=== PATIENT | male | born 1935 | race Caucasian/White ===

== ENCOUNTER 2016-09-09 10:02 | Inpatient (IN) | payer MEDICARE ==
[2016-09-09] MEDS ORDERED: SODIUM CHLORIDE 0.9% 10 ML FLUSH FLUSH PRN (10:25)
[2016-09-09] MEDS ORDERED: ASPIRIN 325 MG TAB PO ONE (10:26)
[2016-09-09] MEDS ORDERED: NITROGLYCERINE 2 % OINTMENT PACK TOP ONE (10:26)
[2016-09-09 10:36] LABS: AUTOMATED BASOPHIL 0.2 % (0-2); AUTOMATED EOSINOPHIL 0.1 % (0-5); AUTOMATED LYMPH 8.8 % (17-44); AUTOMATED MONOCYTE 5.3 % (3-10); AUTOMATED NEUTROPHIL 85.6 % (45-76); MPV 7.1 fL (7.4-10.4)
[2016-09-09 10:45] LABS: BLOOD UREA NITROGEN 19 MG/DL (9-20); CALCIUM 9.2 MG/DL (8.4-10.2); CALCULATED OSMOLALITY 273 MOs/Kg (270-290); CHLORIDE 102 mEq/L (98-107); GLUCOSE 143 MG/DL (70-99); SODIUM LEVEL 140 mEq/L (137-146); TOTAL PROTEIN 6.9 G/DL (6.3-8.2)
[2016-09-09 10:50] LABS: PARTIAL THROMB. TIME 24.7 SEC (22-35)
--- NOTE | 2016-09-09 11:02 | DIRPT ---
CLINICAL DATA: 81-year-old male with chest pain EXAM: PORTABLE CHEST 1 VIEW COMPARISON: Prior chest x-ray 08/05/2013 FINDINGS: The lungs are clear and negative for focal airspace consolidation, pulmonary edema or suspicious pulmonary nodule. No pleural effusion or pneumothorax. Cardiac and mediastinal contours are within normal limits. Atherosclerotic calcifications in the transverse aorta. No acute fracture or lytic or blastic osseous lesions. The visualized upper abdominal bowel gas pattern is unremarkable. IMPRESSION: No active cardiopulmonary disease. Electronically Signed By: Justin Cuellar M.D. On: 09/09/2016 10:59
[2016-09-09] MEDS ORDERED: MORPHINE 4 MG/ML INJECTION IV ONE (11:10)
--- NOTE | 2016-09-09 11:10 | EDPRACDOC ---
<ZhengJulian - Last Filed: 09/09/16 11:37> - General Information Information Source: Patient Mode of Arrival: Car - History of Present Illness Onset: 033 HPI: PT PRESENTS TODAY WITH CP X 7 HOURS. PT STATES THAT THE PAIN CAME ON SUDDENLY IN HIS SLEEP AND FELT LIKE A PRESSURE TYPE PAIN. NON-RADIATING, LASTED 3 HOURS. PT STATES THE PAIN FINALLY WAS RELIEVED AND HE WENT BACK TO SLEEP. PT WOKE UP AND TOLD HIS , WHO MADE HIM COME TO THE ED. PT DENIES S/S AT THIS TIME. PT HAS NO PMH/MEDS. Chest Pain Location: Reports: Substernal Pain Radiation: Reports: None Symptoms Occur: Reports: Suddenly, At Rest Cardiac Risk Factors: Reports: None Cardiac History of: Reports: None PE Risk Factors: Reports: None Medications within 24 Hours: Reports: None Prehospital Care: Reports: None Pain Came On: Reports: Suddenly Pain Status: Resolved Pain Description: Reports: Pressure Pain Severity: Severe Pain Worsens With: Reports: Nothing Pain Improves With: Reports: Nothing Associated Signs and Symptoms: Reports: None <Mayra Del Castillo - Last Filed: 09/09/16 12:13> - General Information Chief Complaint: Chest Pain Stated Complaint: FEVER/ UPPER RIB CAGE PAIN Time Seen by Provider: 09/09/16 10:25 Home Medications: Home Medications No Home Medications 09/09/16 Allergies/Adverse Reactions: Allergies Allergy/AdvReac Type Severity Reaction Status Date / Time No Known Allergies Allergy Verified 09/09/16 10:10 ED Past Medical History - History Reviewed Yes Nurses notes reviewed and agree except as marked - Patient Medical History Musculoskeletal History: Reports: Osteoarthritis Systemic History: Reports: Anemia (IRON DEFICENCY). Denies: Cancer Surgical History: Reports: Hernia Surgery (RT INGUINAL), Tonsillectomy/ Adnoidectomy - Family Medical History Reports: Hypertension (MOTHER), Diabetes (SISTER), Cancer (BROTHER, LUNG), Stroke (PARENTS). Denies: Cardiac Disorders - Social Medical History Smoking Status: Former smoker <Mayra Del Castillo - Last Filed: 09/09/16 12:13> EDM Review of Systems - Review of Systems ROS Negative Except as Marked: Yes All systems reviewed and were negative except as marked Constitutional: No Symptoms Reported Respiratory: No Symptoms Reported Cardiovascular: Chest Pain Gastrointestinal: No Symptoms Reported Genitourinary: No Symptoms Reported Neurological: No Symptoms Reported Musculoskeletal: No Symptoms Reported Integumentary: No Symptoms Reported <Mayra Del Castillo - Last Filed: 09/09/16 12:13> - Physical Exam Last recorded Vital Signs: Last Vital Signs Temp 97.5 F 09/09/16 10:10 Pulse 60 09/09/16 10:55 Resp 18 09/09/16 10:55 BP 149/77 09/09/16 10:55 Pulse Ox 97 09/09/16 10:55 Oxygen Pulse Oxygen Saturation 97 O2 Device Room Air Oxygen Flow Rate Fraction of Inspired Oxygen ( FIO2) <Julian Zheng - Last Filed: 09/09/16 11:37> - Physical Exam Constitutional: Alert (Awake), No apparent distress Oriented to: Time, Person, Place Last recorded Vital Signs: Last Vital Signs Temp 97.5 F 09/09/16 10:10 Pulse 60 09/09/16 10:55 Resp 18 09/09/16 10:55 BP 149/77 09/09/16 10:55 Pulse Ox 97 09/09/16 10:55 Oxygen Pulse Oxygen Saturation 97 O2 Device Room Air Oxygen Flow Rate Fraction of Inspired Oxygen ( FIO2) - HEENT Head: Normal Eye Exam: Normal Oropharynx: Normal Tympanic Membrane: Normal ENT EAC: Normal Nose: No Symptoms Reported Neck: Normal, Denies Pain, Midline - Respiratory/Cardiovascular Respiratory: Normal - CTA Cardiovascular: Bradycardia (NOTED SIGNIFICANT BRADYCARDIA; PT STATES THIS IS NORMAL FOR HIM AND HAS BEEN EVALUATED BY CARDIOLOGY AT THE [facility] MANY YEARS AGO AND WAS FOUND TO BE INSIGNIFICANT) - GI Palpation: Normal Tenderness: Non tender - Musculoskeletal Back: Normal Extremities: Normal - Integumentary Skin: Normal Lymphatics: Normal - Neurologic Mood Description: Normal Thought: Coherent Perception: Normal <Mayra Del Castillo - Last Filed: 09/09/16 12:13> ED Chest Pain Exam - Respiratory/Cardiovascular Respiratory: Normal - CTA Cardiovascular/Chest: Bradycardia Chest Palpation: Normal <Mayra Del Castillo - Last Filed: 09/09/16 12:13> - Results 09/09/16 10:19 09/09/16 10:19 WBC 6.7 xk/uL (3.8-10.8) 09/09/16 10:19 RBC 4.50 xM/uL (4.70-6.10) L 09/09/16 10:19 Hgb 14.1 g/dL (14.0-18.0) 09/09/16 10:19 Hct 41.0 % (42-52) L 09/09/16 10:19 MCV 91 fL (80-94) 09/09/16 10:19 MCH 31.4 pg (27-32) 09/09/16 10:19 MCHC 34.5 g/dl (33-36) 09/09/16 10:19 RDW 12.5 % (11.5-14.5) 09/09/16 10:19 Plt Count 231 xk/uL (130-400) 09/09/16 10:19 MPV 7.1 fL (7.4-10.4) L 09/09/16 10:19 Neut % (Auto) 85.6 % (45-76) H 09/09/16 10:19 Lymph % (Auto) 8.8 % (17-44) L 09/09/16 10:19 [place] % (Auto) 5.3 % (3-10) 09/09/16 10:19 Eos % (Auto) 0.1 % (0-5) 09/09/16 10:19 Baso % (Auto) 0.2 % (0-2) 09/09/16 10:19 Absolute Neuts (auto) 5.70 xk/uL (1.7-8.2) 09/09/16 10:19 Absolute Lymphs (auto) 0.54 xk/uL (0.65-4.75) L 09/09/16 10:19 PT 10.7 SEC (9.2-11.2) 09/09/16 10:19 INR 1.0 09/09/16 10:19 APTT 24.7 SEC (22-35) 09/09/16 10:19 Sodium 140 mEq/L (137-146) 09/09/16 10:19 Potassium 4.4 mEq/L (3.5-5.1) 09/09/16 10:19 Chloride 102 mEq/L (98-107) 09/09/16 10:19 Carbon Dioxide 30 mMOL/L (22-33) 09/09/16 10:19 Anion Gap 12 mEq/L (8-16) 09/09/16 10:19 BUN 19 MG/DL (9-20) 09/09/16 10:19 Creatinine 0.80 MG/DL (0.66-1.25) 09/09/16 10:19 Estimated GFR (MDRD) > 60 mL/min (>=60) 09/09/16 10:19 Glucose 143 MG/DL (70-99) H 09/09/16 10:19 Calculated Osmolality 273 MOs/Kg (270-290) 09/09/16 10:19 Calcium 9.2 MG/DL (8.4-10.2) 09/09/16 10:19 Total Bilirubin 0.7 MG/DL (0.2-1.3) 09/09/16 10:19 AST 37 IU/L (17-59) 09/09/16 10:19 ALT 34 IU/L (21-72) 09/09/16 10:19 Alkaline Phosphatase 74 IU/L (50-160) 09/09/16 10:19 Troponin I 0.80 ng/mL (<.04) H* 09/09/16 10:19 Total Protein 6.9 G/DL (6.3-8.2) 09/09/16 10:19 Albumin 4.2 G/DL (3.5-5.0) 09/09/16 10:19 Lab Results 09/09/16 09/09/16 09/09/16 10:19 10:19 10:19 WBC 6.7 RBC 4.50 L Hgb 14.1 Hct 41.0 L MCV 91 MCH 31.4 MCHC 34.5 RDW 12.5 Plt Count 231 MPV 7.1 L Neut % (Auto) 85.6 H Lymph % (Auto) 8.8 L [place] % (Auto) 5.3 Eos % (Auto) 0.1 Baso % (Auto) 0.2 Absolute Neuts (auto) 5.70 Absolute Lymphs (auto) 0.54 L PT 10.7 INR 1.0 APTT 24.7 Sodium 140 Potassium 4.4 Chloride 102 Carbon Dioxide 30 Anion Gap 12 BUN 19 Creatinine 0.80 Estimated GFR (MDRD) > 60 Glucose 143 H Calculated Osmolality 273 Calcium 9.2 Total Bilirubin 0.7 AST 37 ALT 34 Alkaline Phosphatase 74 Troponin I 0.80 H* Total Protein 6.9 Albumin 4.2 Laboratory Results - last 24 hr 09/09/16 09/09/16 09/09/16 10:19 10:19 10:19 WBC 6.7 RBC 4.50 L Hgb 14.1 Hct 41.0 L MCV 91 MCH 31.4 MCHC 34.5 RDW 12.5 Plt Count 231 MPV 7.1 L Neut % (Auto) 85.6 H Lymph % (Auto) 8.8 L [place] % (Auto) 5.3 Eos % (Auto) 0.1 Baso % (Auto) 0.2 Absolute Neuts (auto) 5.70 Absolute Lymphs (auto) 0.54 L PT 10.7 INR 1.0 APTT 24.7 Sodium 140 Potassium 4.4 Chloride 102 Carbon Dioxide 30 Anion Gap 12 BUN 19 Creatinine 0.80 Estimated GFR (MDRD) > 60 Glucose 143 H Calculated Osmolality 273 Calcium 9.2 Total Bilirubin 0.7 AST 37 ALT 34 Alkaline Phosphatase 74 Troponin I 0.80 H* Total Protein 6.9 Albumin 4.2 Laboratory Results 09/09/16 10:19 09/09/16 10:19 <Julian Zheng - Last Filed: 09/09/16 11:37> - Action ASA given in the ED: Yes - Results 09/09/16 10:19 09/09/16 10:19 WBC 6.7 xk/uL (3.8-10.8) 09/09/16 10:19 RBC 4.50 xM/uL (4.70-6.10) L 09/09/16 10:19 Hgb 14.1 g/dL (14.0-18.0) 09/09/16 10:19 Hct 41.0 % (42-52) L 09/09/16 10:19 MCV 91 fL (80-94) 09/09/16 10:19 MCH 31.4 pg (27-32) 09/09/16 10:19 MCHC 34.5 g/dl (33-36) 09/09/16 10:19 RDW 12.5 % (11.5-14.5) 09/09/16 10:19 Plt Count 231 xk/uL (130-400) 09/09/16 10:19 MPV 7.1 fL (7.4-10.4) L 09/09/16 10:19 Neut % (Auto) 85.6 % (45-76) H 09/09/16 10:19 Lymph % (Auto) 8.8 % (17-44) L 09/09/16 10:19 [place] % (Auto) 5.3 % (3-10) 09/09/16 10:19 Eos % (Auto) 0.1 % (0-5) 09/09/16 10:19 Baso % (Auto) 0.2 % (0-2) 09/09/16 10:19 Absolute Neuts (auto) 5.70 xk/uL (1.7-8.2) 09/09/16 10:19 Absolute Lymphs (auto) 0.54 xk/uL (0.65-4.75) L 09/09/16 10:19 PT 10.7 SEC (9.2-11.2) 09/09/16 10:19 INR 1.0 09/09/16 10:19 APTT 24.7 SEC (22-35) 09/09/16 10:19 Sodium 140 mEq/L (137-146) 09/09/16 10:19 Potassium 4.4 mEq/L (3.5-5.1) 09/09/16 10:19 Chloride 102 mEq/L (98-107) 09/09/16 10:19 Carbon Dioxide 30 mMOL/L (22-33) 09/09/16 10:19 Anion Gap 12 mEq/L (8-16) 09/09/16 10:19 BUN 19 MG/DL (9-20) 09/09/16 10:19 Creatinine 0.80 MG/DL (0.66-1.25) 09/09/16 10:19 Estimated GFR (MDRD) > 60 mL/min (>=60) 09/09/16 10:19 Glucose 143 MG/DL (70-99) H 09/09/16 10:19 Calculated Osmolality 273 MOs/Kg (270-290) 09/09/16 10:19 Calcium 9.2 MG/DL (8.4-10.2) 09/09/16 10:19 Total Bilirubin 0.7 MG/DL (0.2-1.3) 09/09/16 10:19 AST 37 IU/L (17-59) 09/09/16 10:19 ALT 34 IU/L (21-72) 09/09/16 10:19 Alkaline Phosphatase 74 IU/L (50-160) 09/09/16 10:19 Total Protein 6.9 G/DL (6.3-8.2) 09/09/16 10:19 Albumin 4.2 G/DL (3.5-5.0) 09/09/16 10:19 Lab Results 09/09/16 09/09/16 09/09/16 10:19 10:19 10:19 WBC 6.7 RBC 4.50 L Hgb 14.1 Hct 41.0 L MCV 91 MCH 31.4 MCHC 34.5 RDW 12.5 Plt Count 231 MPV 7.1 L Neut % (Auto) 85.6 H Lymph % (Auto) 8.8 L [place] % (Auto) 5.3 Eos % (Auto) 0.1 Baso % (Auto) 0.2 Absolute Neuts (auto) 5.70 Absolute Lymphs (auto) 0.54 L PT 10.7 INR 1.0 APTT 24.7 Sodium 140 Potassium 4.4 Chloride 102 Carbon Dioxide 30 Anion Gap 12 BUN 19 Creatinine 0.80 Estimated GFR (MDRD) > 60 Glucose 143 H Calculated Osmolality 273 Calcium 9.2 Total Bilirubin 0.7 AST 37 ALT 34 Alkaline Phosphatase 74 Total Protein 6.9 Albumin 4.2 Laboratory Results - last 24 hr 09/09/16 09/09/16 09/09/16 10:19 10:19 10:19 WBC 6.7 RBC 4.50 L Hgb 14.1 Hct 41.0 L MCV 91 MCH 31.4 MCHC 34.5 RDW 12.5 Plt Count 231 MPV 7.1 L Neut % (Auto) 85.6 H Lymph % (Auto) 8.8 L [place] % (Auto) 5.3 Eos % (Auto) 0.1 Baso % (Auto) 0.2 Absolute Neuts (auto) 5.70 Absolute Lymphs (auto) 0.54 L PT 10.7 INR 1.0 APTT 24.7 Sodium 140 Potassium 4.4 Chloride 102 Carbon Dioxide 30 Anion Gap 12 BUN 19 Creatinine 0.80 Estimated GFR (MDRD) > 60 Glucose 143 H Calculated Osmolality 273 Calcium 9.2 Total Bilirubin 0.7 AST 37 ALT 34 Alkaline Phosphatase 74 Total Protein 6.9 Albumin 4.2 Laboratory Results 09/09/16 10:19 09/09/16 10:19 - EKG EKG #1 EKG Time: 10:16 -: Yes EKG interpreted by me Rate: bpm: 46 [place]: Normal Rhythm: SB, PVCs Block: None Hypertrophy: None ST: Normal EKG #2 EKG Time: 11:27 -: Yes EKG interpreted by me Rate: bpm: 38 [place]: Normal Rhythm: SB Block: None Hypertrophy: None ST: Normal <Mayra Del Castillo - Last Filed: 09/09/16 12:13> - Departure Yes I personally saw and evaluated the patient. Disposition: Admit IP To This Hospital Decision to Admit Time: 11:37 Decision to admit date: 09/09/16 Decision to admit: from ED - Physician Consulted Cardiology Time Called: 11:37 Provider Called: Josiah Olea Time Accounting Officer Returned Call: 11:37 Consult Reason: WILL SEE IN CONSULT Hospitalist Time Called: 11:38 Provider Called: John Early Time Accounting Officer Returned Call: 11:38 <Julian Zheng - Last Filed: 09/09/16 11:37> <Mayra Del Castillo - Last Filed: 09/09/16 12:13> - Departure Condition: Stable Final Diagnosis: Acute non-ST segment elevation myocardial infarction
[2016-09-09] MEDS ORDERED: NS 1,000 ML IV ONE (11:28)
[2016-09-09] MEDS ORDERED: HEPARIN 5000 UNITS/ML VIAL IV ONE (11:38)
[2016-09-09] MEDS ORDERED: HEPARIN 5000 UNITS/ML VIAL IV SCH (12:00)
[2016-09-09] MEDS ORDERED: NITROGLYCERINE 0.4 MG TAB SL SCH (12:00)
[2016-09-09] MEDS: HEPARIN 5000 UNITS/ML VIAL IV ONE ×2 (12:08→12:09)
[2016-09-09] MEDS: HEPARIN 500 ML IV SCH (12:08)
[2016-09-09] MEDS ORDERED: ONDANSETRON HCL 4 MG/2 ML VIAL IV PRN (12:16)
[2016-09-09] MEDS ORDERED: ACETAMINOPHEN 325 MG/TAB TABLET PO PRN (12:16)
[2016-09-09] MEDS ORDERED: NITROGLYCERINE 0.4 MG TAB SL PRN (12:16)
--- NOTE | 2016-09-09 12:37 | PCM.CARDCO ---
Travel Outside of [place] in the Last 3 Months?: No Consultation Note: History of Present Illness: 81 [facility] WM [facility] and [facility] Bruno but with no chornic med problems or medications. Was awaken around 0300 with persistent substernal chest discomfort, vague character, 4/10 severity, associated with feeling "hot". Unable to get relief, came to ER, by which time discomfort had subtantially abated. No radiation to neck, jaw , arms,back. No diaphoresis, nausea, palpitations. No similar sx in past, no limiting exertional sx, remains active physically. Has hx of bradycardia, no lightheadedness, syncope or near-syncope at any time. Past Medical History: elevated cholesterol in past, [facility] past, chose to exercise more instead Past Surgical History: bilat knee surgeries Allergies No Known Allergies Allergy (Verified 09/09/16 10:10) Home Medications No Home Medications 09/09/16 Family History: brother had AL, and probably a sister prior to her with stroke Both parents of stroke, advanced age. One child, no heart disease Social History: Traveled outside the [place] in the last 3 months? 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 Review of Systems: 10 system negative. No TIA/CVA , PUD, melena, Physical Examination: Temperature: 97.5 F (09/09/16 10:10)HR: 44 (09/09/16 12:03)RR: 18 (09/09/16 12: 03)BP: 127/60 (09/09/16 12:03) SAT:97 (09/09/16 12:03) [] Physical Exam GEN: WDWN, in NAD VS: as above HEENT: neck veins flat CHEST: clear COR: RR, normal s1, s2, no s3 NO murmur ABD: soft, non-tender, no organomegaly or mass EXTREM: rad; fem, PT 2+ bilat, no edema SKIN: warm,dry; no xanthomas NEURO: alert, no focal motor deficit LAB/DI: [] Laboratory Tests 09/09/16 09/09/16 09/09/16 10:19 10:19 10:19 WBC 6.7 Hgb 14.1 Hct 41.0 L Plt Count 231 INR 1.0 Sodium 140 Potassium 4.4 Chloride 102 Carbon Dioxide 30 BUN 19 Creatinine 0.80 Estimated GFR (MDRD) > 60 Total Bilirubin 0.7 AST 37 ALT 34 Alkaline Phosphatase 74 Troponin I 0.80 H* EKGs in ER: marked sinus bradycardia to 38/min. Minor non-specific anterolateral T wave abnl IMPRESSION: suspect acute non-STEMI underlying ASHD - Recommendations REC: admit, serial troponins and CK-MB NPO post midnight. Anticipate cath/poss PCI may be appropriate tomorrow. Nature of cath/PCI reviewed potential need for transfer to in AM reviewed. Pt indicates understanding. Meantime, ASA, full dose Lovenox; no beta radha b/o bradycardia start high intensity statin atorvatstatin [address] Tan to f/u in AM
[2016-09-09] MEDS ORDERED: ATORVASTATIN 80 MG TAB PO ONE (13:00)
[2016-09-09] MEDS ORDERED: METOPROLOL TARTRATE 25 MG TAB PO SCH (13:00)
[2016-09-09] MEDS ORDERED: Pharmacy Order Set Alert SCH (13:00)
[2016-09-09 13:28] VITALS: BMI 26.7
--- NOTE | 2016-09-09 15:12 | HISTPHYS ---
- Chief Complaint Chest pain - History of Present Illness This is a remarkably healthy 81-year-old male who was being admitted to the hospital due to acute coronary syndrome. Patient was in his usual state of health, when at rest very early this morning at home he started to have substernal chest pain. It did not radiate. There is no aggravating or alleviating factors. It lasted about 3 or 4 hours, and went away on its own without intervention. This morning, when he woke up the pain had ceased to recur, but when he told his she insisted that he come to the emergency department. Here in the emergency department, EKG was without abnormality but his 1st troponin was elevated at 0.8. As such, he was admitted to the hospital for further evaluation and management after discussion with punch press feeder to [facility] would not recommend transfer for cardiac catheterization today. Patient was also seen in consultation by our punch press feeder here in the emergency department. - Medical History Systemic History: Reports: Anemia (IRON DEFICENCY) - Surgical History Reports: Hernia Surgery (RT INGUINAL), Tonsillectomy/Adnoidectomy - Medictions/Allergies Allergies No Known Allergies Allergy (Verified 09/09/16 10:10) Home Medications No Home Medications 09/09/16 - Family History Reports: Hypertension (MOTHER), Diabetes (SISTER), Cancer (BROTHER, LUNG), Stroke (PARENTS). Denies: Cardiac Disorders - Social History Travel Outside of [place] in the Last 3 Months?: No Smoking Status: Former smoker - Review of Systems Constitutional: No Symptoms Reported (No fever, chills, wt loss/gain, fatigue) Eyes: No Symptoms Reported (No blurry vision, visual changes) Respiratory: No Symptoms Reported (No cough,wheezing or shortness of breath) Cardiovascular: No Symptoms Reported (No Chest pain, palpitations) Gastrointestinal: No Symptoms Reported (No abdominal pain, nausea, vomiting, diarrhea or constipation) Genitourinary: No Symptoms Reported (No dysuria) Musculoskeletal:: No Symptoms Reported (No headache, dizzness, seizures or focal weakness) Integumentary: No Symptoms Reported (No rashes or lesions) Hematologic: No Symptoms Reported (No bleeding or easy bruising) Endocrine: No Symptoms Reported (No polyuria) - Physical Exam Vital Signs: Initial Vitals Temperature 97.5 F 09/09/16 10:10 Pulse Rate 47 L 09/09/16 10:10 Respiratory Rate 18 09/09/16 10:10 Blood Pressure 130/73 09/09/16 10:10 Pulse Oxygen Saturation 98 09/09/16 10:10 Constitutional: Alert (Awake, Fully oriented, well appearing. No apparent distress) Oriented to: Time, Person, Place - HEENT Head: Normal (normocephalic,atraumatic, trachea midline) Eye: Normal (EOMI, Sclera white) Oropharynx: Normal (moist) Nose: No Symptoms Reported (without discharge or bleeding) Respiratory: Normal - CTA (Clear to auscultation bilaterally, no wheezing,rales or rhonchi. No use of accessory muscles) Cardiovascular: Normal (RRR, no murmurs, rubs or gallops) - GI Palpation: Normal (soft, non distended and nontender) - Musculoskeletal Extremities: Normal (normal tone, no cyanosis or edema) - Integumentary Skin: Normal (no rashes or lesions) - Neurologic Cranial Nerve: Normal (CN II-XII intact) Mood Description: Normal (Fully oriented and appropiate affect) - Focused CV Perfusion Exam Vital Signs: Last Vital Signs Temp 97.8 F 09/09/16 13:25 Pulse 48 L 09/09/16 14:54 Resp 17 09/09/16 13:25 BP 138/66 09/09/16 13:25 Pulse Ox 92 09/09/16 13:25 - Lab Results Laboratory Tests 09/09/16 09/09/16 09/09/16 10:19 10:19 10:19 WBC 6.7 Hgb 14.1 INR 1.0 Potassium 4.4 BUN 19 Creatinine 0.80 Troponin I 0.80 H* 09/09/16 13:56 WBC Hgb INR Potassium BUN Creatinine Troponin I 2.51 H* D - Diagnostic Findings Chest x-ray pain this morning, is without any acute cardiopulmonary process. - Assessment (1) Acute non-ST segment elevation myocardial infarction Acute Continue aspirin, high-dose statin. No beta-radha due to significant bradycardia. He has been heparinized. Cardiology has seen in consultation. Continue to monitor for stability, continue to cardiac telemetry and trend troponins. NPO after midnight for diagnostic catheterization at [facility] tomorrow morning. 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 No visual bleeding at that time, denies any signs or symptoms of anemia or blood loss recently. Will need to keep a close eye on him as he is on heparin drip. (4) Urinary retention with incomplete bladder emptying R33.9 - RETENTION OF URINE, UNSPECIFIED Suspected Case Care Discussed with: Patient, Family, Nursing Staff Total Time: 56
[2016-09-09] MEDS: ASPIRIN (CHEWABLE) 81 MG TAB PO SCH (16:10)
[2016-09-10 01:58] LABS: MPV 7.8 fL (7.4-10.4)
[2016-09-10 02:36] LABS: BLOOD UREA NITROGEN 21 MG/DL (9-20); CALCIUM 8.9 MG/DL (8.4-10.2); CALCULATED OSMOLALITY 271 MOs/Kg (270-290); CHLORIDE 102 mEq/L (98-107); GLUCOSE 98 MG/DL (70-99); LDL (calc.) 99.4 MG/DL (<100); SODIUM LEVEL 139 mEq/L (137-146); VLDL (calc.) 13.6 MG/DL (5-40)
[2016-09-10 04:01] VITALS: BP 107/56
[2016-09-10] MEDS: HEPARIN 500 ML IV SCH (08:00)
[2016-09-10] MEDS: ASPIRIN (CHEWABLE) 81 MG TAB PO SCH (08:03)
[2016-09-10 08:21] VITALS: PULSE 51; TEMP 98.1
[2016-09-10] MEDS ORDERED: ATORVASTATIN 80 MG TAB PO SCH (09:00)
--- NOTE | 2016-09-10 09:10 | PCM.DCS92 ---
- Final/Secondary Discharge Diagnosis (1) Acute non-ST segment elevation myocardial infarction Acute Comment: Continue aspirin, high-dose statin. No beta-radha due to significant bradycardia. He has been heparinized, tolerating well without any signs or symptoms of bleeding. Cardiology has seen in consultation. Continue to monitor for stability, continue to cardiac telemetry and trend troponins. Has been NPO after midnight, anticipate transfer to [facility] later today for cardiac catheterization. 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 No visual bleeding at that time, denies any signs or symptoms of anemia or blood loss recently. Will need to keep a close eye on him as he is on heparin drip. (4) Urinary retention with incomplete bladder emptying Suspected R33.9 - RETENTION OF URINE, UNSPECIFIED Discharge Disposition: Trans. to Other Hospital ([facility] for diagnostic catheterization) Discharge Condition: Stable Cognitive Discharge Status: Unimpaired Fuctional Discharge Status: Independent O2 Device: Room Air Diet at Discharge: Other (NPO for procedure) - DC Summary Notes HPI/Notes: 81-year-old male previously very healthy was admitted to the hospital with chest pain. He has non ST elevation myocardial infarction, was admitted to the hospital with medical management and close observation, with heparin started. This morning, he will be transferred to [facility] for diagnostic catheterization. Hospital Course Note:: Discharge summary on patient named SEBAS DICK admitted to [facility] on 09/09/16 by John Early MD. Date of discharge is []. Total Time: 49 - Physical Exam Vital Signs: Last Vital Signs Temp 98.1 F 09/10/16 08:00 Pulse 51 L 09/10/16 08:00 Resp 16 09/10/16 08:00 BP 107/56 L 09/10/16 08:00 Pulse Ox 93 09/10/16 08:00 Oxygen Pulse Oxygen Saturation 93 O2 Device Room Air Oxygen Flow Rate Fraction of Inspired Oxygen ( FIO2) Constitutional: Alert (Awake, Fully oriented, well appearing. No apparent distress) Oriented to: Time, Person, Place - HEENT Head: Normal (normocephalic,atraumatic, trachea midline) Eye: Normal (EOMI, Sclera white) Oropharynx: Normal (moist) Nose: No Symptoms Reported (without discharge or bleeding) - Respiratory/Cardiovascular Respiratory: Normal - CTA (Clear to auscultation bilaterally, no wheezing,rales or rhonchi. No use of accessory muscles) Cardiovascular: Normal (RRR, no murmurs, rubs or gallops) - GI Palpation: Normal (soft, non distended and nontender) - Musculoskeletal Extremities: Normal (normal tone, no cyanosis or edema) - Integumentary Skin: Normal (no rashes or lesions) - Neurologic Mood Description: Normal (Fully oriented and appropiate affect)
--- NOTE | 2016-09-10 09:38 | PCM.CARD ---
- Subjective Current Assessment: No New Symptoms (Patient is comfortable and is asymptomatic. He denies any problems at this time. No chest pain orthopnea or PND. He mentions to me that he has been told that he has a slow heart rate.) Vital Signs: Last Vital Signs Temp 98.1 F 09/10/16 08:00 Pulse 51 L 09/10/16 08:00 Resp 16 09/10/16 08:00 BP 107/56 L 09/10/16 08:00 Pulse Ox 93 09/10/16 08:00 Pulse Rhythm: Regular EKG Rhythm: Sinus Rhythm Heart Sounds: S1 & S2 (Heart sounds irregular lungs bilateral air entry and no pedal edema.) - Assessment/Plan (1) Acute non-ST segment elevation myocardial infarction Acute Comment/Plan: I discussed his case at length with my partner who evaluated him yesterday. I evaluated the patient. Diagnosis was discussed. Coronary angiography and left heart catheterization was explained. Procedure, benefits and potential risks were explained at length he vocalized understanding and is agreeable. I called [facility] coronary angiography lab and discussed the case with the facility there and they have agreed to transfer an accept the patient and I have made arrangements with the carbon electrodes supervisor at the hospital. Please see order sheets for further instructions I also discussed this at length with the hospitalist here at our hospital and we concur. Further recommendations will depend on the findings of the coronary angiography. Secondary prevention stressed to the patient. Patient is not on beta-blockers because of beta by the cardiac and Manfred inhibitors because of hypotension which is borderline. Total time for this evaluation was 35 minutes.
[2016-09-10] MEDS ORDERED: ALPRAZOLAM 0.25 MG TAB PO ONE (09:39)
[2016-09-10] MEDS ORDERED: NS 1,000 ML IV SCH (10:00)
--- NOTE | 2016-09-12 09:43 | CAPUEKG ---
[place], [place] Test Date: 2016-09-09 Pat Name: SEBAS DICK Department: Room: 444 Gender: Male Block Layer: RADHA : Requested By: Order Number: Reading MD: Victoriano Tan MD Measurements Intervals [place] Rate: 46 P: 61 AK: 194 QRS: -42 QRSD: 94 T: 22 QT: 454 QTc: 397 Interpretive Statements Marked sinus bradycardia with marked sinus arrhythmia Left axis deviation Nonspecific ST and T wave abnormality Abnormal ECG Electronically Signed On 09-12-16 09:42:51 EST by Victoriano Tan MD <[email or web address]> [id number]
== END 2016-09-10 10:55 | disposition short-term general hospital (02) | DRG 282 ==
LOC: ED 10:02 → PCU 12:17
PROVIDERS: ADMIT Internal Medicine; ATTEND Internal Medicine
DX: I21.4 Non-ST elevation (NSTEMI) myocardial infarction (principal); D64.9 Anemia, unspecified; Z96.659 Presence of unspecified artificial knee joint; R33.9 Retention of urine, unspecified; Z87.891 Personal history of nicotine dependence
CPT/HCPCS: 36415; 71010; 80048; 80053; 80061; 83735; 84484; 85025; 85027; 85610; 85730; 93005; 96361; 96374; 96375; 99285; J1644; J2270; J3490